=== PATIENT | female | born 1960 | race American Indian/Alaskan Native ===

== ENCOUNTER 2016-09-03 17:32 | Emergency (ER) | payer OTHER ==
[2016-09-03 17:44] VITALS: BP 154/80
[2016-09-03] MEDS ORDERED: ULTRAM PO ONE (18:12)
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
--- NOTE | 2016-09-03 20:36 | XRay Report ---
FINAL REPORT EXAM: XR TIBIA FIBULA 2V RT HISTORY: pain, swelling, bruising TECHNIQUE: Frontal and lateral views of right tibia. PRIORS: None. FINDINGS: Degenerative change noted in the knee joint. No apparent fracture or dislocation. Soft tissues grossly unremarkable. IMPRESSION: 1. No acute osseous abnormality.
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
== END 2016-09-03 21:05 | disposition home or self-care (01) ==
LOC: ED 17:32
DX: S80.11XA Contusion of right lower leg, initial encounter (principal); V49.59XA Passenger injured in collision with other motor vehicles in traffic accident, initial encounter; Y93.9 Activity, unspecified; Y92.89 Other specified places as the place of occurrence of the external cause; Y99.9 Unspecified external cause status; F17.200 Nicotine dependence, unspecified, uncomplicated
CPT/HCPCS: 99283